=== PATIENT | male | born 1955 | race Caucasian/White ===

== ENCOUNTER 2020-05-20 10:40 | Emergency (ER) | payer MEDICARE, SELFPAY ==
[2020-05-20 10:45] VITALS: BP 182/120; PULSE 80; RESP 20; TEMP 37; O2SAT 96
--- NOTE | 2020-05-20 10:58 | ED.DENTAL ---
HPI - Dental/Oral General Chief complaint: Dental/Oral Stated complaint: tooth pain Time Seen by Provider: 05/20/20 10:49 Source: patient Mode of arrival: ambulatory Limitations: no limitations History of Present Illness HPI Narrative: This is a 64 year old male who presents for evaluation of an infected tooth. He has been having right lower tooth pain x 2 weeks. He reports he knows it is infected due to purulent discharge. HE denies fever, chills, nausea, vomiting or swelling. He has an appointment with a dentist on Friday, so he came to ER for antibiotics. Related Data Home Medications Medication Instructions Recorded Confirmed carvedilol 05/20/20 Allergies Allergy/AdvReac Type Severity Reaction Status Date / Time No Known Allergies Allergy Verified 05/20/20 11:18 Review of Systems Review of Systems: All systems reviewed & are unremarkable except as noted in HPI and below PMFSH Past Medical History Medical History (Updated 05/20/20 @ 11:07 by Nanda Corona MD) Hypertension Surgical History Surgical History (Updated 05/20/20 @ 11:05 by Nanda Corona MD) Hx of cholecystectomy Social History Social History (Updated 05/20/20 @ 11:05 by Nanda Corona MD) Smoking status: Former smoker Exam Const: General: alert Orientation/consciousness: patient oriented x3 HENMT: Head: normocephalic and atraumatic Face and sinus: face symmetric Teeth and gingiva: poor dentition and other (right lower molar #31 broken, tender, no surrounding swelling) Throat: posterior oropharynx normal, tonsils normal and uvula midline Eyes: EOM: EOMs intact bilaterally Resp: Effort & Inspection: normal respiratory effort Skin: General skin exam: normal color Rashes: no rashes Neuro: General: patient oriented x3 and moves all extremities Course Reevaluation(s) Reevaluation #1: I Discussed with patient discharge plan to discharge with antibiotics. He denies any additional questions or concerns, Date: 05/20/20 Time: 11:00 Vital Signs Vital signs: Vital Signs Temperature 98.6 F 05/20/20 10:45 Pulse Rate 80 05/20/20 10:45 Respiratory Rate 20 05/20/20 10:45 Blood Pressure 182/120 H 05/20/20 10:45 Pulse Oximetry 96 05/20/20 10:45 Temperature 98.6 F 05/20/20 10:45 Pulse Rate 80 05/20/20 10:45 Respiratory Rate 20 05/20/20 10:45 Blood Pressure 182/120 H 05/20/20 10:45 Pulse Oximetry 96 05/20/20 10:45 Discharge Plan Discharge Clinical Impression: Dental abscess Patient Disposition: Home, Self-Care Condition: Stable Instructions: Antibiotic Form, Dental Abscess (ED) Additional Instructions: Follow up with your dentist on Friday. Take antibiotics. Takes medication such as aleve or ibuprofen for pain. Prescriptions: New amoxicillin-pot clavulanate [Augmentin] 875-125 mg tablet 1 tablet PO Q12H Qty: 20 RF: 0 No Action carvedilol 6.25 mg tablet RF: 0 Follow-up/Referrals: Dana,Gal Nair MD [Primary Care Provider] - Stand Alone Forms: Work/School Release IP
== END 2020-05-20 11:30 | disposition home or self-care (01) ==
PROVIDERS: Emergency Provider General Practice; PCP Internal Medicine
DX: K04.7 Periapical abscess without sinus (principal); I10 Essential (primary) hypertension; Z87.891 Personal history of nicotine dependence
CPT/HCPCS: 99283

== ENCOUNTER 2020-07-11 11:23 | Emergency (ER) | payer MEDICARE, SELFPAY ==
--- NOTE | 2020-07-11 | ECG_ITS ---
Measurements Intervals [place] Rate: 93 P: 10 SC: 185 QRS: 11 QRSD: 91 T: -10 QT: 363 QTc: 451 Interpretive Statements SINUS RHYTHM INCOMPLETE RIGHT BUNDLE BRANCH BLOCK NONSPECIFIC T-WAVE ABNORMALITY- ANTEROLAT/INF LEADS BORDERLINE ECG Electronically Signed On 07-11-2020 14:52:48 CDT by Mirza Chawla D.O.
--- NOTE | ~2020-07-11 | CT_ITS ---
EXAMINATION: CT brain wo con EXAM DATE: 07/11/2020 11:33 INDICATION: Sudden onset confusion, temporary change in awareness. TECHNIQUE: Spiral CT of the head was performed without contrast. Axial, coronal and sagittal images were reviewed. The dose-length product (DLP) for this examination was 908.00 mGy-cm. The exposure w as tailored according to patient size, and iterative reconstruction (ASIR) was used as additional dos e reduction technique. There is no prior study for comparison. FINDINGS: Study is limited due to patient motion. There are at least 2 left temporal occipital lobe infarctions, acute or subacute but at least over 6 hours in age given density. Largest region measur es about 3 cm. There is moderate microangiopathy and cerebral atrophy. No acute intraparenchymal hem orrhage, extra-axial collections or obstructive hydrocephalus. Mild mucoperiosteal thickening. IMPRESSION: 1. At least 2 small to moderate size left MCA distribution acute or subacute infarctions. 2. Atrophy and microangiopathy. As per stroke protocol, I called these results to emergency room, discussed with Dakota Zacarias at 07/11/2020 11:41 CDT . Reviewed, dictated and finalized at location A. IMPRESSION: 1. At least 2 small to moderate size left MCA distribution acute or subacute i nfarctions. 2. Atrophy and microangiopathy. As per stroke protocol, I called these results to emergency room, discussed wit che Zacarias at 07/11/2020 11:41 CDT .
[2020-07-11 11:35] VITALS: BP 141/96; PULSE 97; RESP 18; TEMP 36.1; O2SAT 94
--- NOTE | 2020-07-11 11:43 | ED.NEUROSD ---
HPI - Neuro Symptoms/Deficit General Chief Complaint: Suspected CVA Stated Complaint: ?CVA Time Seen by Provider: 07/11/20 11:43 History of Present Illness HPI Narrative: Acute onset of left sided gaze preference and nonsensical speech about 50 minutes prior to arrival. He reportedly had a stroke last week. Unknown what treatment he got. Per his he had recovered completely aside from mild memory issue. I dod not believe that he got TPA because he was not transferred to a stroke center. He is not on any blood thinners. Glucose 115. History very limited by mental status. Related Data Home Medications Medication Instructions Recorded Confirmed carvedilol 05/20/20 Allergies Allergy/AdvReac Type Severity Reaction Status Date / Time No Known Allergies Allergy Verified 05/20/20 11:18 Review of Systems Review of Systems: ROS unobtainable: Yes unobtainable due to mental status PMFSH Past Medical History Medical History (Updated 07/11/20 @ 12:08 by Dakota Zacarias MD) Hypertension Stroke Surgical History Surgical History (Updated 05/20/20 @ 11:05 by Nanda Corona MD) Hx of cholecystectomy Social History Social History (Updated 05/20/20 @ 11:05 by Nanda Corona MD) Smoking status: Former smoker Exam Const: General: alert and confusion Nutritional Appearance: overweight Orientation/consciousness: confusion HENMT: Head: normal to inspection Eyes: Other: Deviated to the left Chest: Chest palpation & inspection: normal inspection of the chest Resp: Effort & Inspection: normal respiratory effort Auscultation: clear to auscultation bilaterally Cardio: Rate: regular rate Rhythm: regular rhythm Skin: General skin exam: normal color Neuro: General: tone normal and moves all extremities Cognition (Neuro): abnormal cognition Speech: No dysarthria and aphasia Gait exam (Neuro): Unable to assess gait Motor exam (neuro): Other motor observations present Course Vital Signs Vital signs: Vital Signs Temperature 36.1 C L 07/11/20 11:35 Pulse Rate 97 07/11/20 11:35 Respiratory Rate 18 07/11/20 11:35 Blood Pressure 141/96 H 07/11/20 11:35 Pulse Oximetry 94 07/11/20 11:35 Temperature 36.1 C L 07/11/20 11:35 Pulse Rate 97 07/11/20 11:35 Respiratory Rate 18 07/11/20 11:35 Blood Pressure 141/96 H 07/11/20 11:35 Pulse Oximetry 94 07/11/20 11:35 MDM - Neuro Symptoms/Deficit MDM Narrative Medical decision making narrative: He appears to be having another stroke. CT shows MCA distribution strokes, appear new, but could be subacute given recent stroke history. He is not a TPA candidate given recent stroke history. Case discussed with stroke attending at [facility] and they will accept the transfer to [facility] ED. ED attending Dr. Barlow Called for emergent EMS transfer. 15 minute arrival time quoted. This should be neglegibly different from air transport. CTA ordered, but radiology says that it will not be ready in time for the transfer. I will defer this to the accepting facility. Medical Records Attestation: I reviewed the patient's medical records. Imaging Data Radiologist's impression: ITS Impressions Head CT 07/11/20 11:34 IMPRESSION: 1. At least 2 small to moderate size left MCA distribution acute or subacute infarctions. 2. Atrophy and microangiopathy. As per stroke protocol, I called these results to emergency room, discussed with Dakota Zacarias at 07/11/2020 11:41 CDT . Critical Care Time Critical Care Time Critical Care Time: Yes Total Critical Care Time: 35 Discharge Plan Discharge Clinical Impression: Acute ischemic left MCA stroke Patient Disposition: Acute Care Hospital Condition: Serious Instructions: Ischemic Stroke (DC) Prescriptions: No Action amoxicillin-pot clavulanate [Augmentin] 875-125 mg tablet 1 tablet PO Q12H Qty: 20 RF: 0 carvedilol 6.25 mg tablet RF: 0 Follow
--- NOTE | 2020-07-11 11:49 | PC.NURSE ---
Pts arrived and states that he started having similar symptoms night (07/06) and was seen in the ER at [facility] friday afternoon. She states he got an MRI, carotid dopplars and was admitted until yesterday with symptom improvement.
[2020-07-11] MEDS: ASPIRIN 81 MG CHEWABLE TABLET 324 MG PO (11:56)
--- NOTE | 2020-07-11 11:59 | PC.NURSE ---
Unable to perform full stroke scale. Pts eyes are open and speaking clearly but doesnt answer direct questions. Pt keeps saying i dont know whats going on. I didnt do anything wrong. Pt opens mouth when asked to smile. Will follow RNs finger with eyes to left left side only. When RN moves finger to the right side of his face he looks straight ahead. Pt will keep his arms raised when arms are manually lifted for a few seconds but wont squeeze RNs hand on commands or raise left arm on his own. Pt able to raise right arm by himself. Pt can keep legs raised individually for a few seconds when manually raised off bed by RN but does not attempt to move them himself when asked.
[2020-07-11 12:00] LABS: Basophils Absolute Auto 0.1 K/mm3 (0.0-0.1); Basophils Percent Auto 0.8 % (0.2-1.2); Eosinophils Absolute Auto 0.2 K/mm3 (0-0.3); Eosinophils Percent Auto 3.1 % (0-4.4); Hematocrit 48.7 % (42.0-52.0); Hemoglobin 16.2 g/dL (14.0-18.0); Immature Granulocyte Absolute 0.03 K/mm3 (0.00-0.031); Immature Granulocyte Percent A 0.4 % (0-0.5); Lymphocytes Absolute Auto 1.59 K/mm3 (0.9-3.2); Lymphocytes Percent Auto 21.3 % (18.3-44.2); Mean Corpuscular HGB Conc 33.3 g/dl (32-36); Mean Corpuscular Hemoglobin 29.5 pg (26-34); Mean Corpuscular Volume 88.7 fl (80-100); Mean Platelet Volume 9.7 fl (7.4-10.4); Monocytes Absolute Auto 0.9 K/mm3 (0.1-0.6); Monocytes Percent Auto 11.6 % (2.6-8.5); Neutrophils Absolute Auto 4.7 K/mm3 (1.3-6.7); Neutrophils Percent Auto 62.8 % (45.5-73.1); Platelet Count Result 269 k/mm3 (150-375); Red Blood Count 5.49 M/mm3 (4.6-6.20); Red Cell Distribution Width 12.8 % (11.5-14.5); White Blood Count 7.5 K/mm3 (4.5-10.0)
[2020-07-11 12:06] VITALS: BP 148/92; PULSE 95; RESP 17; O2SAT 95
[2020-07-11 12:10] VITALS: BP 148/92; PULSE 87; RESP 16; O2SAT 95
[2020-07-11 12:11] LABS: Ethanol < 10 mg/dL (<10)
[2020-07-11 12:12] LABS: Alanine Aminotransferase 34 U/L (4-50); Albumin Level 4.1 g/dL (3.5-5.1); Alkaline Phosphatase 75 U/L (38-126); Anion Gap 8 mmol/L (8-16); Aspartate Amino Transferase 33 U/L (17-59); Bilirubin,Total 0.4 mg/dL (0.2-1.3); Blood Urea Nitrogen 21 mg/dL (9-20); Carbon Dioxide 28 mmol/L (22-30); Chloride 104 mmol/L (98-107); Estimated CRCL calculation 87 ml/min; Estimated Glomerular Filt Rate > 60; Glucose 128 mg/dL (75-110); INR 0.9; Partial Thromboplastin Time 24.7 SECONDS (22.3-36.8); Potassium 4.2 mmol/L (3.4-5.0); Prothrombin Time 13.1 Seconds (11.1-14.7); Sodium 140 mmol/L (137-145)
[2020-07-11 12:23] LABS: Troponin I < 0.012 ng/mL (0.000-0.034)
[2020-07-11 12:40] LABS: Glucose Point of Care 115 (65-105)
== END 2020-07-11 12:26 | disposition short-term general hospital (02) ==
PROVIDERS: Emergency Provider Emergency Medicine; PCP Internal Medicine
DX: I63.512 Cerebral infarction due to unspecified occlusion or stenosis of left middle cerebral artery (principal); I10 Essential (primary) hypertension; I69.311 Memory deficit following cerebral infarction; Z87.891 Personal history of nicotine dependence; R29.707 NIHSS score 7; I45.10 Unspecified right bundle-branch block; R94.31 Abnormal electrocardiogram [ECG] [EKG]; I73.9 Peripheral vascular disease, unspecified; G31.9 Degenerative disease of nervous system, unspecified; Z79.899 Other long term (current) drug therapy
CPT/HCPCS: 36415; 70450; 80053; 80307; 82948; 84484; 85025; 85610; 85730; 93005; 99284; 99285; A9270